=== PATIENT | male | born 1990 | race African-American/Black ===

== ENCOUNTER 2024-05-24 00:24 | Emergency (ER) | payer SELFPAY ==
[~2024-05-24] VITALS: Ht 172.7 cm; Wt 132.9 kg
[2024-05-24 00:30] VITALS: PULSE 94; RESP 18; TEMP 98
[2024-05-24] MEDS: IBUPROFEN 200 MG TAB PO ONE (01:29)
[2024-05-24] MEDS ORDERED: TYLENOL325 MG PO (01:30)
[2024-05-24] MEDS: ACETAMINOPHEN 325 MG TAB PO ONE (01:30)
[2024-05-24] MEDS ORDERED: IBUPROFEN200 MG PO (01:30)
[2024-05-24 02:03] VITALS: BP 141/65; PULSE 87; RESP 18; TEMP 98.6; O2SAT 99
== END 2024-05-24 02:09 | disposition home or self-care (01) ==
LOC: FSED 00:54
DX: M54.50 Low back pain, unspecified (principal); V43.52XA Car driver injured in collision with other type car in traffic accident, initial encounter; Y92.488 Other paved roadways as the place of occurrence of the external cause
CPT/HCPCS: 72100; 99284